=== PATIENT | female | born 1935 | race Caucasian/White ===

== ENCOUNTER → 2018-04-29 | Outpatient (CLI) | payer OTHER ==
[2015-04-16 10:25] VITALS: BP 130/64
[~2018-04-29] MED LIST: ACAR50TA PO; ALPR0.5T6 PO; CALC600T4 PO; CHOL200044 PO; DOCU100C28 PO; FISH1CAP PO; FURO40TA4 PO; GLIM1TAB2 PO; LEVO88TA4 PO; LINZESS290 MCG PO; METF500T16 PO; NAPR-514 PO; OMEP20CA10 PO; SIMV40TA3 PO; TRAM50TA PO
--- NOTE | 2018-04-29 11:53 | KCIC ---
EXAM: Bilateral digital screening mammogram with tomosynthesis. HISTORY: 82-year-old female presents for screening mammography. . TECHNIQUE: Full-field digital craniocaudal and mediolateral oblique 2D and 3D tomosynthesis images of both breasts are obtained for evaluation. Computer aided detection with [employer] software version 9.3 was applied. COMPARISON: 12/22/2016 BREAST PARENCHYMAL DENSITY: Level B - Scattered fibroglandular densities. FINDINGS: There is no new suspicious mass, microcalcification or region of architectural distortion. IMPRESSION: BI-RADS Category 2: Benign finding(s). RECOMMENDATION: Annual mammography is recommended. If your mammogram demonstrates that you have dense breast tissue, which could hide abnormalities, and if you have other risk factors for breast cancer that have been identified, you might benefit from supplemental screening tests that may be suggested by your ordering physician. Dense breast tissue, in and of itself, is a relatively common condition. This information is not provided to cause undue concern, but rather to raise your awareness and to promote discussion with your physician regarding the presence of other risk factors, in addition to dense breast tissue. A report of your mammography results will be sent to you and your physician. You should contact your physician if you have any questions or concerns regarding this report. Mammography is a sensitive method for finding small breast cancers, but it does not detect them all and is not a substitute for careful clinical examination. A negative mammogram does not negate a clinically suspicious finding and should not result in delay in biopsying a clinically suspicious abnormality. PQRS compliance statement - Patient information was entered into a reminder system with a target due date for the next mammogram. "Our facility is accredited by the [employer] Mammography Program." Electronically signed by: Lakia Dukes MD (04/29/2018 11:50 AM) [id number]
--- NOTE | 2018-04-29 14:52 | KCIC ---
Chest CT without contrast Clinical indications: Crackling sound in the right side of the chest. Evaluation for fibrosing alveolitis. COMPARISON: CT study of the abdomen dated May 28, 2013. TECHNIQUE: Noncontrast helical CT scanning of the chest was performed. Without IV contrast, the sensitivity to detect organ pathology is decreased. PQRS compliance Statement One or more of the following individualized dose reduction techniques were utilized for this study: 1. Automated exposure control 2. Adjustment of the mA and/or kV according to patient size 3. Use of iterative reconstruction technique FINDINGS: No enlarged thoracic lymphadenopathy is evident. No focal aneurysmal dilatation of the thoracic aorta is seen. Calcified atheromatous disease of the coronary arteries is seen. The heart size is normal and no pericardial effusion is evident. Subpleural interstitial lung disease is seen bilaterally with a lower lung zone predominance. There is been no change in the lung bases from the previous abdomen CT. No lung mass is seen. No lung consolidation with air bronchograms is evident. No pleural effusion or pneumothorax is seen. The proximal bronchial tree is patent. No adrenal mass is seen. Left adrenal glands are not completely seen in this study. No lytic process is seen. 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 No significant change in the lung bases from previous abdomen CT dated May 28, 2013. Electronically signed by: Noe Hinds MD (04/29/2018 2:49 PM) [place] [id number]
== END | disposition home or self-care (01) ==
LOC: KCIC CT 09:55
PROVIDERS: ATTEND Family Medicine
DX: Z12.31 Encounter for screening mammogram for malignant neoplasm of breast (principal); R92.8 Other abnormal and inconclusive findings on diagnostic imaging of breast; J84.10 Pulmonary fibrosis, unspecified; I25.10 Atherosclerotic heart disease of native coronary artery without angina pectoris
CPT/HCPCS: 71250; 77063; 77067

== ENCOUNTER → 2020-06-25 | Outpatient (CLI) | payer MEDICARE ==
[2015-04-16 10:25] VITALS: BP 130/64
[~2020-06-25] MED LIST changes: -ACAR50TA PO; +ACAR50TA2 PO; -CALC600T4 PO; +CALC600T60 PO; -GLIM1TAB2 PO; +GLIM1TAB7 PO; -OMEP20CA10 PO; +OMEP20CA16 PO; +SIMV40TA18 PO; -SIMV40TA3 PO
--- NOTE | 2020-06-25 11:43 | KCIC ---
EXAMINATION: Magnetic resonance imaging (MRI) of the lumbar spine without contrast 06/25/2020 9:30 AM HISTORY: Low back pain with history of lumbar surgery 1988. Bilateral leg pain. TECHNIQUE: Multiplanar multi-weighted MRI of the lumbar spine was performed without intravenous contr ast using the standard lumbar spine protocol. Contrast information: None administered. COMPARISON: None available. FINDINGS: There is 2 mm retrolisthesis of L1 on L2. There is 2 mm anterolisthesis of L4 on L5. Vertebral body h eights are maintained. There is an osseous hemangioma at L2. No suspicious osseous lesion. Modic type I endplate degenerative changes are identified at L4-L5. There is mild disc height loss at and L2-L3 and L4-L5 with associated disc desiccation at all levels of lumbar spine. Moderate disc height loss at L5-S1. Minimal reverse S-shaped scoliosis of the thoracolumbar spine with apex levocurvature at L1 -L2 and apex dextrocurvature at L4-L5. There is endplate irregularity at L4-L5 without definite osseo us erosion or fracture. Abdominal aorta is normal in caliber. No suspicious intraperitoneal abnormali ty. Versus portions of the sacrum appear intact. Kidneys are normal in appearance. T12-L1: Mild disc bulge. Mild facet arthropathy ligamentum flavum infolding. No neuroforaminal or spi nal canal stenosis. Conus medullaris terminates at L1. Distal spinal cord signal intensity is normal sequences. L1-L2: There is a sequential disc bulge with central disc extrusion. Mild facet arthropathy ligamentu m flavum infolding. Moderate bilateral neuroforaminal stenosis. Mild spinal canal stenosis. There is narrowing the right lateral recess. L2-L3: There is a sequential disc bulge with right central disc extrusion. Moderate facet arthropathy ligamentum flavum infolding. Severe right and moderate left neural foraminal stenosis. There is righ t lateral recess stenosis. Moderate to severe spinal canal stenosis. L3-L4: There is a moderate circumferential disc bulge. There is a right central disc extrusion. There is moderate facet arthropathy ligamentum flavum infolding. There is severe left lateral recess steno sis. Severe spinal canal stenosis. L4-L5: There is a circumferential disc bulge asymmetric to the left with left far lateral disc extrus ion. Moderate to severe facet arthropathy, right greater than left. There is left lateral recess sten osis. There is severe left neuroforaminal stenosis. Mild spinal canal stenosis. Partial laminectomy c hanges are suspected. L5-S1: There is a disc bulge asymmetric to the right. Moderate facet arthropathy ligamentum flavum in folding. Moderate bilateral neuroforaminal stenosis. No significant spinal canal stenosis. There is a synovial cyst arising from the left facet joint projecting medially and anteriorly measuring 5 x 4 m m. 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 Electronically signed by: Анна Colunga MD (06/25/2020 11:40 AM) [id number]
== END ==
LOC: KCIC MRI 08:55
PROVIDERS: ATTEND Internal Medicine
DX: M47.817 Spondylosis without myelopathy or radiculopathy, lumbosacral region (principal)
CPT/HCPCS: 72148

== ENCOUNTER → 2020-07-25 | Outpatient (CLI) | payer MEDICARE ==
[2015-04-16 10:25] VITALS: BP 130/64
--- NOTE | 2020-07-25 14:31 | RAD ---
Bilateral lower extremity superficial venous ultrasound. INDICATION: Bilateral lower extremity edema. History of bilateral greater saphenous venous ablation. PROCEDURE: Grayscale and color and spectral Doppler imaging of the greater saphenous vein of each int errogated extremity is performed with and without compression. FINDINGS: On the right, the greater saphenous vein is ablated with no evidence of recanalization. The right short saphenous vein is patent throughout with normal color and spectral flow. No evidence of reflux. On the left, there is 1 cm patency proximally with complete ablation of the remainder the gr eater saphenous vein and no evidence of recanalization. The right lesser saphenous vein is patent thr oughout with normal color and spectral flow, and no evidence of reflux. IMPRESSION: 1. Ablated bilateral greater saphenous veins with no evidence of recanalization. 2. Patent bilateral lesser saphenous veins with no evidence of reflux. Electronically signed by: Geoff Cadena MD (07/25/2020 2:28 PM) [id number]
--- NOTE | 2020-07-26 17:42 | CARD ---
MR#: [id number] Date of Study: 07/25/2020 Ordering Physician: DAJA CAPELLAN, Referring Physician: Rom POWERS: Ivania Hernandez [facility] APPROVED REPORT EXAM: Two-dimensional and M-mode echocardiogram with Doppler and color Doppler. Other Information Quality : AverageHR: 68bpm Rhythm : NSR INDICATION Edema 2D DIMENSIONS RVDd2.8 (2.9-3.5cm)Left Atrium(2D)4.3 (1.6-4.0cm) IVSd1.3 (0.7-1.1cm)Aortic Root(2D)3.0 (2.0-3.7cm) LVDd3.2 (3.9-5.9cm)LVOT Diameter2.4 (1.8-2.4cm) PWd1.4 (0.7-1.1cm)LVDs1.9 (2.5-4.0cm) FS (%) 41.0 %SV30.8 ml Aortic Valve AoV Peak Frandy.131.6cm/Luther Peak GR.6.9mmHg LVOT Peak Frandy.92.2cm/sAVA (VMAX)3.16cm2 AI P 1/2 [id number] Pulmonary Valve PV Peak Xlpxijyq92.7cm/s Tricuspid Valve RAP [id number] Pulmonary Vein S1 Iheottmj80.0cm/sD2 Kdcyweuo82.4cm/s PVa [id number] LEFT VENTRICLE The left ventricle is normal size. There is normal left ventricular wall thickness. The left ventricu lar systolic function is normal. The ejection fraction is 55 to 60%. There is normal LV segmental wal l motion. Tissue Doppler imaging reveals abnormal left ventricular diastolic dysfunction. No left clint tricle thrombus noted on this study. There is no ventricular septal defect visualized. There is no le ft ventricular aneurysm. There is no mass noted in the left ventricle. RIGHT VENTRICLE The right ventricle is normal size. There is normal right ventricular wall thickness. The right ventr icular systolic function is normal. ATRIA The left atrium size is normal. The right atrium size is normal. AORTIC VALVE The aortic valve is normal in structure and function. Doppler and Color Flow revealed trace to mild a ortic regurgitation. There is no aortic valvular stenosis. There is no aortic valvular vegetation. MITRAL VALVE The mitral valve is normal in structure and function. There is no evidence of mitral valve prolapse. There is no mitral valve stenosis. There is trace mitral valve regurgitation. TRICUSPID VALVE The tricuspid valve is normal in structure and function. Doppler and Color Flow revealed no tricuspid valve regurgitation noted. PULMONIC VALVE The pulmonary valve is normal in structure and function. GREAT VESSELS The aortic root is normal in size. The ascending aorta is normal in size. The pulmonary artery is nor mal. The IVC is normal in size and collapses >50% with inspiration. PERICARDIAL EFFUSION There is no pleural effusion. The pericardium appears normal. Critical Notification Critical Value: No <Conclusion> The left ventricle is normal size. The left ventricular systolic function is normal. The ejection fraction is 55 to 60%. Doppler and Color Flow revealed trace to mild aortic regurgitation. There is no aortic valvular stenosis. There is trace mitral valve regurgitation. Doppler and Color Flow revealed no tricuspid valve regurgitation noted. Signed by : Olivier Nugent MD Electronically Approved : 07/26/2020 17:42:05
== END ==
LOC: US 12:33
PROVIDERS: ATTEND Internal Medicine Cardiovascular Disease
DX: I35.1 Nonrheumatic aortic (valve) insufficiency (principal); R60.0 Localized edema
CPT/HCPCS: 93306; 93970

== ENCOUNTER → 2020-12-26 | Outpatient (CLI) | payer MEDICARE ==
[2015-04-16 10:25] VITALS: BP 130/64
--- NOTE | 2020-12-26 17:40 | RAD ---
XR [id number]_LT 1-2 VIEWS History: Status post fall, accident. Comparison: 04/16/2015 Technique: 2 views the left knee. Findings: Decreased osseous mineralization. No fracture or dislocation. No significant joint space narrowing. M edial and lateral meniscal chondrocalcinosis. No significant effusion. Impression: 1. Decreased osseous mineralization and meniscal chondrocalcinosis without acute osseous abnormality of the left knee. Electronically signed by: Michael Carlin MD (12/26/2020 5:38 PM) [id number]
== END ==
LOC: RAD 12:36
PROVIDERS: ATTEND Internal Medicine
DX: M11.262 Other chondrocalcinosis, left knee (principal); M85.80 Other specified disorders of bone density and structure, unspecified site; W18.30XA Fall on same level, unspecified, initial encounter
CPT/HCPCS: 73560

== ENCOUNTER → 2021-02-11 | Outpatient (CLI) | payer MEDICARE ==
[2015-04-16 10:25] VITALS: BP 130/64
--- NOTE | 2021-02-11 12:11 | RAD ---
CT HEAD WITHOUT CONTRAST 02/11/2021 10:26 AM Indication: Reason: HEAD INJURIES, HEADACHE / Comparison: None available Procedure: Multidetector CT imaging of the head was performed without the administration of contrast. Findings: There is no evidence of acute intracranial hemorrhage. There is no evidence of acute territ orial infarction. Please note that CT is limited for evaluation of acute ischemia. No mass effect or midline shift is identified . The ventricles and basilar cisterns have an appropriate appearance. No abnormal extra-axial fluid collections are seen. No acute osseous changes are identified. Impression: No evidence of acute intracranial abnormality CT DOSING PQRS STATEMENT: One or more of the following individualized dose reduction techniques were utilized for this examinat ion: 1. Automated exposure control 2. Adjustment of the mA and/or kV according to patient size 3. Use of iterative reconstruction technique Electronically signed by: Sanchez Zamarripa MD (02/11/2021 12:08 PM) [id number]
--- NOTE | 2021-02-11 12:49 | RAD ---
EXAM: Cervical spine, 3 views. HISTORY: Pain. COMPARISON: None. FINDINGS: 3 views of the cervical spine are obtained. There is instrumented anterior spinal fusion an d interbody fusion at C5-C7. There is partial bony bridging across the disc spaces at these levels. T here is minimal retrolisthesis of C4 on C5. There is degenerative endplate remodeling with disc space narrowing at C4-C5 and C7-T1. There is multilevel facet arthropathy. IMPRESSION: 1. Instrumented fusion at C5-C7. 2. Degenerative change primarily at C4-C5 and C7-T1. Electronically signed by: Lakia Dukes MD (02/11/2021 12:47 PM) [id number]
== END ==
LOC: CT 12:03
PROVIDERS: ATTEND Nurse Practitioner Family
DX: S09.90XA Unspecified injury of head, initial encounter (principal); R51.9 Headache, unspecified; M47.813 Spondylosis without myelopathy or radiculopathy, cervicothoracic region; M48.03 Spinal stenosis, cervicothoracic region; M48.8X2 Other specified spondylopathies, cervical region; X58.XXXA Exposure to other specified factors, initial encounter; Y93.89 Activity, other specified; Y92.89 Other specified places as the place of occurrence of the external cause; Y99.8 Other external cause status
CPT/HCPCS: 70450; 72040